=== PATIENT | male | born 1990 | race African-American/Black ===

== ENCOUNTER 2021-07-20 16:12 | Emergency (ER) | payer OTHER ==
[2021-07-20 16:18] VITALS: BP 146/73
[2021-07-20] MEDS ORDERED: BACITRACIN ZINC OINT 1 PACKET TOP STA (16:40)
--- NOTE | 2021-07-20 16:42 | ED Physician Documentation ---
History of Present Illness - Stated complaint Stated Complaint: HEAD INJ - Chief complaint Chief Complaint: Laceration - Additonal information Additional information: 31-year-old male presents emergency department for evaluation of acute lac eration to his posterior occiput. He is in the [place] stood up suddenly and impaled his head on the sharp edge of a shelf. Did not initially notice that he was bleeding until few minutes later when he felt blood running down his neck. There was no loss of consciousness. Tetanus is up-to-date. Review of Systems Constitutional: denies: Fever, Chills Eyes: reports: Reviewed and negative Ears: reports: Reviewed and negative Cardiac: reports: Reviewed and negative Respiratory: reports: Reviewed and negative GI: reports: Reviewed and negative Skin: reports: Laceration (s) Musculoskeletal: reports: Reviewed and negative PD PAST MEDICAL HISTORY - Present Medications Home Medications: Ambulatory Orders Medication Instructions Recorded Confirmed Amoxicillin 500 mg PO TID #30 capsule 12/22/19 Cetirizine HCl [Zyrtec] 10 mg PO DAILY 12/22/19 12/22/19 Ibuprofen [Motrin] 600 mg PO Q6H PRN 12/22/19 12/22/19 Multivitamin [Multiple Vitamins] 1 tab ORAL DAILY 12/22/19 12/22/19 predniSONE [Deltasone] 20 mg PO [id number] #21 tab 12/22/19 - Allergies Allergies/Adverse Reactions: Allergies Allergy/AdvReac Type Severity Reaction Status Date / Time No Known Drug Allergies Allergy Verified 07/20/21 16:17 - Social History Does the pt smoke?: No Smoking Status: Never smoker PD ED PE NORMAL - General General: Alert and oriented X 3, No acute distress, Well developed/nourished - HEENT HEENT: Moist mucous membranes, Pharynx benign. No: Atraumatic - Neck Neck: Supple, no meningeal sign, No adenopathy - Cardiac Cardiac: RRR, No murmur - Respiratory Respiratory: No respiratory distress - Derm Derm: Other (2 cm laceration right posterior occiput. 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 Eye Opening: Spontaneous Motor: Obeys Commands Verbal: Oriented GCS Score: 15 - Psych Psych: Normal mood Results - Vitals Vitals: Vital Signs - 24 hr 07/20/21 16:15 Temperature 36.2 C L Heart Rate 69 Respiratory 16 Rate Blood Pressure 146/73 H O2 Saturation 100 Oxygen O2 Source Room air Procedures - Laceration (location) Right posterior occiput Length in cm: 2 Wound type: Linear Neurovascular status: Sensory intact Wound preparation: Irrigated copiously NS Skin layer closure: Gerard (3 placed) Other: Patient tolerated well, No complications, Tetanus UTD PD MEDICAL DECISION MAKING - ED course Complexity details: considered differential, d/w patient ED course: 31-year-old male presents emergency department with a 2 cm laceration right posterior occiput sustained when he accidentally hit his head on the sharp edge of a metal shelf. Tetanus is up-to-date. Wound was easily closed with 3 gerard. Does not require advanced CT imaging. Routine wound care and emergent return precautions otherwise discussed. Departure - Departure Disposition: 01 Home, Self Care Clinical Impression: Laceration Condition: Stable Record reviewed to determine appropriate education?: Yes Comments: Srinivas the laceration on the back your head was closed with gerard. They should remain in place for 5 to 7 days and can then be removed at any urgent care visit or through [facility]. You can shower normally but I do not advise swimming until the wound is healed. After showering place any antibiotic ointment such as bacitracin or Neosporin over the wound. In general scalp lacerations heal very quickly and well without any infections. If you develop fevers have sudden severe headache uncontrolled vomiting or have any concerns of infection or milky drainage from the wound then please return immediately to the ER for a second evaluation
== END 2021-07-20 16:51 | disposition home or self-care (01) ==
LOC: ED 16:12
DX: S01.01XA Laceration without foreign body of scalp, initial encounter (principal); W22.8XXA Striking against or struck by other objects, initial encounter
CPT/HCPCS: 12001; 99282; A9270

== ENCOUNTER 2022-01-22 09:28 | Outpatient (CLI) | payer OTHER ==
[2022-01-22 10:24] VITALS: BP 128/60
--- NOTE | 2022-01-22 10:24 | SLEEP CARE CONSULTATION ---
Information from patient questionnaire entered by Christopher Villarreal. I have reviewed and concur with the information entered by Christopher Villarreal. This document represents the service I personally performed and the decisions made by me, Yuli Fox ARNP. History of Present Illness Service Date and Time: 01/22/2022927 Reason for Visit: New patient Chief Complaint: reports: Unrefreshed sleep, Snoring, Excessive daytime sleepiness, Observed pauses in breathing, Fatigue, Frequent awakenings at night Date of Onset: A FEW YEARS Usual bedtime: 930-1030 PM Time it takes to fall asleep: 5 MINUTES Snores at night: Yes Observed to quit breathing while asleep: Yes Sleeps alone due to snoring: Yes (almost every night) Number of times waking at night: 4-8 Reasons for waking at night: reports: Choking, Snoring, Gasping for air Toss, Turn, or Twitch while sleeping: Yes Recalls having dreams: Yes Usually gets out of bed at: 430-5AM; weekends too Feels refreshed in the morning: No Morning headache: No Sleepy or fatigued during the day: Yes Ever fallen asleep while driving: Yes (drowsy driving, no accidents) Takes day naps: Yes (1-2 times a week; 30-60 minutes) Dreams during day naps: Yes Prior sleep studies: No Additional HPI information: I had the pleasure of seeing EDUARDA DELACRUZ today regarding the possibility of him having a sleep disorder. His current complaints are excessive daytime sleepin ess, fatigue, frequent night awakenings, observed pauses in breathing, snoring and unrefreshed sleep. He has been having issues with sleep for a few years. He is snoring loudly and waking up his . His also tells him that he will stop breathing and then is making gasping or coughing sounds before resuming snoring. He has lost about 30 pounds and was also working out at the gym, increasing muscle mass. He then felt he was not getting restful sleep and has cut back on his exercise. He is waking himself up snoring and gasping in his sleep. He has stopped drinking alcohol and denies ever smoking. He has been referred for sleep studies in the past but has not completed any sleep study. He did not get them done but states he tried to get other things in his life improved before getting the study done. He has not noted relief of sleep symptoms with weight loss and improved health with stopping alcohol. He feels his fatigue and sleep problems are getting worse. He does not feel refreshed from sleep in the mornings and is tired throughout the day. He also had a new baby in house that affected his sleep but this has gradually improved with the child getting older. He is ready to complete a sleep study now. He denies known family history of sleep apnea or other sleep disordered breathing. - Parasomnia Symptoms Ever been unable to move upon waking from sleep: Yes (when waking up; infrequently) Walks in sleep: No Talks in sleep: No Ever acted out dreams in sleep: No Ever felt weak in the knees when startled or emotional: Yes (has not fallen to ground) Bothered by creepy, crawly, restless sensations in legs: No Problems with memory or concentration: Yes (both; hard to remember things; feeling behind in sleep) Subjective Initial [place] Sleepiness Scale score: 22 (10-4-22) Past Medical History Past Medical History: reports: Asthma, Other (allergies) Social History The patient's occupation is a AM. Patient is and lives in [place]. Have you smoked in the past 12 months: No Alcohol use: No Caffeine use: Yes Caffeine amount and frequency: 1 CUP ONCE A DAY Family History Family history of sleep disordered breathing: Yes Family Hx Sleep Apnea: Father: Snoring Allergies and Home Medications Known drug allergies: No Drug allergies reviewed: Yes (NKDA) Home medication list reviewed: Yes Allergy and home medication list: Allergies No Known Drug Allergies Allergy (Verified 07/20/21 16:17) Medications: Albuterol inhaler, prn Advair, prn Review of Systems Weight loss over past 5 years: 30 Cardiovascular: denies: high blood pressure Respiratory: reports: shortness of breath Neurological: denies: head trauma Psychiatric: denies: anxiety, depression Ear/Nose/Throat: reports: nasal congestion, sinus problems, wisdom teeth removed. denies: tonsillectomy Endocrine: reports: sluggishness Immunologic: reports: allergies to food or environment (seasonal allergies) Physical Exam Vital signs obtained and entered by: ESTEBAN HERNDON Blood Pressure: 128/60 (left arm ) Cuff size: regular Heart Rate: 58 O2 Saturation: 98 Height: 6 ft Weight: 206 lb Body Mass Index: 27.9 BMI Classification: Overweight Neck circumference: 16 (inches ) Mouth and throat: narrow oropharynx Soft palate: normal Hard palate: normal Uvula: normal Uvula visualization: 25% Mallampati Class III Tongue: enlarged in size with teeth pierce on lateral edges Tonsils: small Neck: normal w/o lymphadenopathy or thyromegaly Heart: regular rate and rhythm Lungs: clear bilaterally Impression and Plan 1. Suspected Obstructive Sleep Apnea-Hypopnea Syndrome, as suggested by a history of loud and irregular snoring, observed cessation of breath while asleep, gasping or choking in sleep, frequent awakening during the night, unrefreshed sleep, cognitive impairment, and excessive daytime sleepiness. Narrow oropharynx and obesity are common predisposing factors for obstructive sleep apnea-hypopnea syndrome. I recommend proceeding to polysomnography to confirm the diagnosis and to assess severity. If the patient has significant sleep disordered breathing, a manual CPAP titration study will also be performed to find the optimal treatment pressure. I informed the patient of what the sleep studies involve and after some discussion, obtained agreement to proceed. The pathophysiology of obstructive sleep apnea-hypopnea syndrome was discussed with the patient and health risks of cardiovascular and cerebrovascular disease if not treated. Risks of drowsy driving discussed in detail and patient advised to avoid long distance driving and to well puller at the first sign of drowsiness. Patient agreed to plan. * Schedule polysomnography * Avoid long distance driving or driving when feeling sleepy. * Avoid alcohol, sedative and muscle relaxant around bedtime. * Attempt to lose weight. * Review instructions provided by trained office staff on how to prepare for the sleep study. * Return for follow-up after sleep study completed. Counseling Topics: Weight loss health impact Visit Type: In Office Time Spent with Patient (minutes): 32 Provider Statement: I spent 100% of the Face to Face Visit with the patient with greater than 50% spent counseling the patient and coordination of care.
== END 2022-01-22 09:29 | disposition home or self-care (01) ==
LOC: SC 09:28
PROVIDERS: ATTEND Nurse Practitioner Family
DX: R06.83 Snoring (principal); G47.8 Other sleep disorders; R06.81 Apnea, not elsewhere classified; G47.10 Hypersomnia, unspecified; R53.83 Other fatigue; E66.9 Obesity, unspecified; Z68.27 Body mass index [BMI] 27.0-27.9, adult
CPT/HCPCS: 99203; 99212

== ENCOUNTER 2022-02-21 20:40 | Outpatient (CLI) | payer OTHER | END 2022-02-21 20:41 | disposition home or self-care (01) | LOC: SC 20:40 | PROVIDERS: ATTEND Nurse Practitioner Family | DX: R06.83 Snoring (principal); G47.8 Other sleep disorders; R06.81 Apnea, not elsewhere classified; G47.10 Hypersomnia, unspecified; R53.83 Other fatigue | CPT/HCPCS: 95810 ==

== ENCOUNTER 2022-03-22 16:07 | Outpatient (CLI) | payer OTHER ==
[2022-03-22 16:36] VITALS: BP 134/88
--- NOTE | 2022-03-22 16:36 | SLEEP CARE CONSULTATION ---
Information from patient questionnaire entered by Marisela Wallace. I have reviewed and concur with the information entered by Marisela Wallace. This document represents the service I personally performed and the decisions made by , Yuli Fox ARNP. History of Present Illness Service Date and Time: 03/22/2022 1607 Initial [place] Sleepiness Scale score: 22 (10-4-22) Current [place] Sleepiness Scale score: 19 (03/22/2022) Additional HPI information: EDUARDA DELACRUZ returns for follow up and results of the recently performed polysomnography. The patient was informed of the following findings: No significant sleep disordered breathing with an average AHI of 1.6 and juvencio oxygen saturation of 90%. I explained the pathophysiology behind obstructive sleep apnea. Patient does not have sleep apnea and was advised how weight gain could increase the risk of developing sleep apnea in the future. Patient has light to loud snoring. Snoring can be reduced by weight loss. Weight loss is best achieved with diet consult. Patient instructed to contact PCP for referral. Snoring can also be treated with an oral appliance from a dentist. Advised to check insurance coverage. In addition, an ENT evaluation can be do to see if other treatment is indicated. Patient does not drink alcohol. Patient was cautioned about risks of drowsy driving until sleepiness symptoms resolve. Sleep Study - Results Type of Sleep Study: Polysomnography (COMPLETED 02/21/22) Prior sleep studies: No Polysomnography/Home Sleep Study results: IMPRESSION: The quality of the study is good. The patient had normal sleep efficiency. The sleep architecture was normal as well. Respiratory monitoring showed no significant sleep disordered breathing (AHI = 1.6) or hypoxia (juvencio oxygen saturation of 90%). The patient slept adequately in supine position (supine AHI = 1.6; nonsupine = 0.00). Snore was light to loud in intensity. There was no significant periodic leg movement of sleep. Cardiac rhythm was normal sinus rhythm without significant arrhythmia. No abnormal behavior (parasomnia) observed during the night. Allergies and Home Medications Drug allergies reviewed: Yes (NKDA) Home medication list reviewed: Yes (no changes) Review of Systems Review of systems same as previous: Yes (no changes) Physical Exam Vital signs obtained and entered by: MARISELA Adam MA Blood Pressure: 134/88 (LEFT ARM) Cuff size: regular Heart Rate: 81 O2 Saturation: 97 Height: 6 ft Weight: 191 lb 9.6 oz Body Mass Index: 25.9 BMI Classification: Overweight Impression and Plan Snoring but no significant sleep disordered breathing. Patient advised that often weight loss will reduce snoring as well as apnea risk. An oral appliance can also be used for snoring. This would require a dental consultation. Patient cautioned not to use other online appliances as can cause bite issues. A list of accredited dentists in [facility] and one local dentist who makes oral appliances is available in office. Patient is advised to check if insurance will cover. An ENT consult can also be helpful to determine if any other treatment is an option. * Return as needed for follow up. Visit Type: In Office Time Spent with Patient (minutes): 13 Provider Statement: I spent 100% of the Face to Face Visit with the patient with greater than 50% spent counseling the patient and coordination of care.
== END 2022-03-22 16:08 | disposition home or self-care (01) ==
LOC: SC 16:07
PROVIDERS: ATTEND Nurse Practitioner Family
DX: R06.83 Snoring (principal); E66.3 Overweight; Z68.25 Body mass index [BMI] 25.0-25.9, adult
CPT/HCPCS: 99212

== ENCOUNTER 2022-04-23 09:40 | Outpatient (CLI) | payer OTHER ==
--- NOTE | 2022-04-23 18:15 | MRI Report ---
PROCEDURE: WRIST WO - RT INDICATIONS: WRIST PAIN TECHNIQUE: Noncontrast coronal proton density fast spin echo and T2 fast spin echo with fat saturation; coronal 3-D gradient echo, axial T1 spin echo and T2 fast spin echo with fat saturation, sagittal T1 spin ech o through the wrist. COMPARISON: None. FINDINGS: Image quality: Excellent. Bones and cartilage: The carpal bones are normally aligned. No bone marrow contusions or fractures. No evidence for avascular necrosis. Overlying cartilage surfaces appear normal. Carpal ligaments: The scapholunate and lunotriquetral ligaments appear intact. In the absence of in tra-articular contrast, the extrinsic carpal ligaments are not well identified. On sagittal images, the pisohamate ligament appears intact. Triangular fibrocartilage complex: The triangular fibrocartilage appears intact. The adjacent menis shane homolog appears normal in the absence of intra-articular contrast. The extensor carpi ulnaris te ndon is normal in location and morphology. Tendons and soft tissues: The carpal tunnel structures appear normal, including the median nerve. T he ulnar nerve appears normal within Guyon's canal. All six extensor tendon compartments demonstrate normal morphology, without pathologic tendon sheath fluid. There is suggestion of a ganglion cyst ov er volar aspect of trapezoid and is deep to the flexor tendons measures approximately 6 x 5 x 8 mm in size. There is also suggestion of a 5 x 3 x 4 mm ganglion cyst over volar aspect of ulnar styloid ti p. IMPRESSION: 1. Suggestion of subcentimeter ganglion cysts over volar aspect of wrist joint as described above. 2. Intrinsic and extrinsic wrist ligaments are grossly intact. Triangular fibrocartilage complex is g rossly intact. 3. No marrow edema. No fracture or dislocation. No evidence of avascular necrosis. 4. Extensor and flexor tendons are within normal limits. Reviewed by: Marcos Isaac MD on 04/23/2022 6:14 PM PST Approved by: Marcos Isaac MD on 04/23/2022 6:14 PM PST Station ID: [id number]
== END 2022-04-23 09:41 | disposition home or self-care (01) ==
LOC: DI 09:40
PROVIDERS: ATTEND Physician Assistant
DX: M25.531 Pain in right wrist (principal); G62.9 Polyneuropathy, unspecified